=== PATIENT | male | born 1985 | race Caucasian/White ===

== ENCOUNTER 2018-02-28 04:38 | Emergency (ER) | payer SELFPAY ==
[2018-02-28 05:50] LABS: Absolute Lymphocytes (CBC) 0.8 K/uL (0.7-4.9); Absolute Neutrophil 7.2 K/uL (1.8-8.0); Basophils % 0.2 % (0-1.3); Eosinophils % 0.9 % (0-4.4); Hematocrit 46.4 % (39.6-49.0); Lymphocytes % 9.2 % (15.3-44.8); MCH 31.6 pg (27.0-35.0); MCV 92.1 fL (80-100); MPV 10.3 fL (7.6-11.3); Monocytes % 10.8 % (3.3-12.3); RBC Red Blood Cell Count 5.03 M/uL (4.33-5.43)
[2018-02-28 05:54] LABS: Protime INR 1.08
[2018-02-28 06:00] LABS: Potassium 4.1 mEq/L (3.6-5.0)
[2018-02-28 06:06] LABS: Albumin 4.2 g/dL (3.2-5.5); Bilirubin Direct 0.1 mg/dL (0-0.2); Bilirubin Total 0.3 mg/dL (0.3-1.2); Magnesium 1.9 mg/dL (1.8-2.5); Protein, Total 7.2 g/dL (6.0-8.3)
[2018-02-28 06:09] LABS: CKMB Creatine Kinase MB 0.8 ng/ml (0.3-4.0)
--- NOTE | 2018-02-28 06:39 | EDPHYS ---
Physician Documentation [facility] Name: Korey Burr Age: 32 yrs Sex: Male : 1985 Arrival Date: 02/28/2018 Time: 04:42 Bed 5 Private MD: ED Physician Mayur Neville HPI: 02/28 05:51 This 32 yrs old Male presents to ER via Ambulatory with complaints of Chest tw4 Pain. 05:51 The patient or guardian reports chest pain that is located primarily in the anterior tw4 chest wall. The pain does not radiate. Associated signs and symptoms: The patient has no apparent associated signs or symptoms. The chest pain is described as dull. Duration: The patient or guardian reports a single episode. Modifying factors: The symptoms are alleviated by nothing. the symptoms are aggravated by nothing. Severity of pain: At its worst the pain was moderate in the emergency department the pain is unchanged. The patient has not recently seen a physician. Historical: - Allergies: 05:03 No Known Allergies; aa1 - Home Meds: 05:03 None [Active]; aa1 - PMHx: 05:03 None; aa1 - PSHx: 05:03 None; aa1 - Immunization history:: Last tetanus immunization: unknown. - Social history:: Smoking status: Patient uses tobacco products, smokes one pack cigarettes per day. - Ebola Screening: : No symptoms or risks identified at this time. ROS: 05:51 Constitutional: Negative for fever, chills, and weight loss, Respiratory: Negative for tw4 shortness of breath, cough, wheezing, and pleuritic chest pain, Abdomen/GI: Negative for abdominal pain, nausea, vomiting, diarrhea, and constipation, Back: Negative for injury and pain. 05:51 MS/Extremity: Negative for injury and deformity, Skin: Negative for injury, rash, and discoloration, Neuro: Negative for headache, weakness, numbness, tingling, and seizure. 05:51 Cardiovascular: Positive for chest pain, Negative for edema, orthopnea, palpitations. Exam: 05:51 Constitutional: This is a well developed, well nourished patient who is awake, alert, tw4 and in no acute distress. Head/Face: Normocephalic, atraumatic. Chest/axilla: Normal chest wall appearance and motion. Nontender with no deformity. No lesions are appreciated. Cardiovascular: Regular rate and rhythm with a normal S1 and S2. No gallops, murmurs, or rubs. Normal PMI, no JVD. No pulse deficits. Respiratory: Lungs have equal breath sounds bilaterally, clear to auscultation and percussion. No rales, rhonchi or wheezes noted. No increased work of breathing, no retractions or nasal flaring. Abdomen/GI: Soft, non-tender, with normal bowel sounds. No distension or tympany. No guarding or rebound. No evidence of tenderness throughout. Back: No spinal tenderness. No costovertebral tenderness. Full range of motion. MS/ Extremity: Pulses equal, no cyanosis. Neurovascular intact. Full, normal range of motion. Neuro: Awake and alert, GCS 15, oriented to person, place, time, and situation. Cranial nerves II-XII grossly intact. Motor strength 5/5 in all extremities. Sensory grossly intact. Cerebellar exam normal. Normal gait. Vital Signs: 05:03 BP 121 / 84; Pulse 97; Resp 18; Temp 98.4; Pulse Ox 98% on R/A; Weight 74.84 kg; Height aa1 5 ft. 9 in. (175.26 cm); Pain 1/10; 06:29 BP 124 / 84; Pulse 88; Resp 16; Pulse Ox 100% on R/A; ao 05:03 Body Mass Index 24.37 (74.84 kg, 175.26 cm) aa1 MDM: 04:46 Patient medically screened. tw4 03/01 01:13 Data reviewed: vital signs, nurses notes. Data interpreted: cafeteria monitor: rhythm is tw4 normal sinus rhythm, Pulse oximetry: Interpretation: normal. Special discussion: Based on the patient's history, exam, and Dx evaluation, there is no indication for emergent intervention or inpatient Tx. It is understood by the patient/guardian that if the Sx's persist or worsen they need to return immediately for re-evaluation. I discussed with the patient/guardian in detail that at this point there is no indication for admission to the hospital. It is understood, however, that if the symptoms persist or worsen the patient needs to return immediately for re-evaluation. 02/28 04:46 Order name: Basic Metabolic Panel; Complete Time: 06:38 tw4 02/28 06:38 Interpretation: Within normal limits. tw4 02/28 04:46 Order name: BNP; Complete Time: 06:38 4 02/28 06:38 Interpretation: Within normal limits: BNP < 10. 02/28 04:46 Order name: CBC with Diff; Complete Time: 06:38 tw4 02/28 06:38 Interpretation: Normal except: PLT 149; LYM% 9.2; DOMINICK% 78.9. 02/28 04:46 Order name: Ckmb; Complete Time: 06:38 4 02/28 04:46 Order name: CPK; Complete Time: 06:38 tw4 02/28 06:38 Interpretation: Within normal limits: CPK 88. 02/28 04:46 Order name: LFT's; Complete Time: 06:38 4 02/28 04:46 Order name: Magnesium; Complete Time: 06:38 4 02/28 04:46 Order name: PT-INR; Complete Time: 06:38 4 02/28 06:38 Interpretation: Normal except: PT 12.7. 02/28 04:46 Order name: Ptt, Activated; Complete Time: 06:38 02/28 04:46 Order name: Troponin (emerg Dept Use Only); Complete Time: 06:38 4 02/28 04:46 Order name: XRAY Chest (1 view) tw02/28 04:46 Order name: EKG; Complete Time: 04:47 02/28 06:46 Order name: Urine Dipstick--Ancillary (enter results) ms 02/28 04:46 Order name: Cardiac monitoring; Complete Time: 05:28 02/28 04:46 Order name: EKG - Nurse/Tech; Complete Time: 05:41 02/28 04:46 Order name: IV Saline Lock; Complete Time: 05:41 02/28 04:46 Order name: Labs collected and sent; Complete Time: 05:41 02/28 04:46 Order name: O2 Per Protocol; Complete Time: 05:41 02/28 04:46 Order name: O2 Sat Monitoring; Complete Time: 05:41 tw4 EC/03 05:57 Rate is 90 beats/min. Rhythm is regular. QRS [place] is Normal. IN interval is normal. QRS tw4 interval is normal. QT interval is normal. No Q waves. T waves are Normal. No ST changes noted. Clinical impression: Normal ECG. Interpreted by me. Reviewed by me. Administered Medications: No medications were administered Disposition: 02/28/18 06:39 Discharged to Home. Impression: Chest pain, unspecified. - Condition is Stable. - Discharge Instructions: Electrocardiography, Pain Without a Known Cause, Nonspecific Chest Pain, [id number]. - Prescriptions for Naprosyn 500 mg Oral Tablet - take 1 tablet by ORAL route 2 times per day take with food; 30 tablet. - Medication Reconciliation Form, Thank You Letter, Antibiotic Education, Prescription Opioid Use form. - Follow up: Private Physician; When: As needed; Reason: Recheck today's complaints, Continuance of care, Re-evaluation by your physician. - Problem is new. - Symptoms have improved. Signatures: Dispatcher [employer] EDYolanda Huddleston RN RN aa1 Samuel Ashley RN RN ao Mayur Neville MD MD tw4 Corrections: (The following items were deleted from the chart) 07:11 04:46 Urine Dipstick-Ancillary ordered. tw4 ao 07:15 06:39 02/28/2018 06:39 Discharged to Home. Impression: Chest pain, unspecified. ao Condition is Stable. Forms are Medication Reconciliation Form, Thank You Letter, Antibiotic Education, Prescription Opioid Use. Follow up: Private Physician; When: As needed; Reason: Recheck today's complaints, Continuance of care, Re-evaluation by your physician. Problem is new. Symptoms have improved. tw4
--- NOTE | 2018-02-28 06:39 | ER ---
Nurse's Notes [facility] Name: Korey Burr Age: 32 yrs Sex: Male : 1985 Arrival Date: 02/28/2018 Time: 04:42 Bed 5 Private MD: Diagnosis: Chest pain, unspecified Presentation: 02/28 05:01 Presenting complaint: Patient states: int CP since last night. States, "It will go away aa1 and then I'll lay down and it will come back." Also reports cough and congestion. Transition of care: patient was not received from another setting of care. Onset of symptoms was February 27, 2018. Risk Assessment: Do you want to hurt yourself or someone else? Patient reports no desire to harm self or others. Initial Sepsis Screen: Does the patient meet any 2 criteria? No. Patient's initial sepsis screen is negative. Does the patient have a suspected source of infection? No. Patient's initial sepsis screen is negative. Care prior to arrival: None. 05:01 Method Of Arrival: Ambulatory aa1 05:01 Acuity: CRISTAL 3 aa1 Historical: - Allergies: 05:03 No Known Allergies; aa1 - Home Meds: 05:03 None [Active]; aa1 - PMHx: 05:03 None; aa1 - PSHx: 05:03 None; aa1 - Immunization history:: Last tetanus immunization: unknown. - Social history:: Smoking status: Patient uses tobacco products, smokes one pack cigarettes per day. - Ebola Screening: : No symptoms or risks identified at this time. Screenin:53 Abuse screen: Denies threats or abuse. Denies injuries from another. Nutritional rv screening: No deficits noted. Tuberculosis screening: No symptoms or risk factors identified. Fall Risk None identified. Assessment: 05:00 General: Appears in no apparent distress. comfortable, Behavior is calm, cooperative, rv appropriate for age. Pain: Complains of pain in chest Pain does not radiate. Pain currently is 4 out of 10 on a pain scale. Quality of pain is described as pressure, Pain began 2-3 days ago. Neuro: Level of Consciousness is awake, alert, obeys commands, Oriented to person, place, time, situation, Appropriate for age Moves all extremities. Full function Speech is normal, Cardiovascular: Capillary refill < 3 seconds Patient's skin is warm and dry. Respiratory: Airway is patent is compromised Respiratory effort is even, unlabored, Respiratory pattern is regular, symmetrical. GI: Abdomen is non-distended. : No signs and/or symptoms were reported regarding the genitourinary system. EENT: No signs and/or symptoms were reported regarding the EENT system. Derm: Skin is intact, Skin temperature is warm. Musculoskeletal: Circulation, motion, and sensation intact. Range of motion:. 06:29 Reassessment: Patient appears in no apparent distress at this time. Patient and/or ao family updated on plan of care and expected duration. Pain level reassessed. Patient is alert, oriented x 3, equal unlabored respirations, skin warm/dry/pink. Provide with water. Waiting for patient to give a urine sample. 07:11 Reassessment: Patient DC home. Patient understand the POC and to follow up with PCP. Dr clotilde Neville ordered to cancel UDS due to no urine given from patient. Vital Signs: 05:03 BP 121 / 84; Pulse 97; Resp 18; Temp 98.4; Pulse Ox 98% on R/A; Weight 74.84 kg; Height aa1 5 ft. 9 in. (175.26 cm); Pain 1/10; 06:29 BP 124 / 84; Pulse 88; Resp 16; Pulse Ox 100% on R/A; ao 05:03 Body Mass Index 24.37 (74.84 kg, 175.26 cm) aa1 ED Course: 04:42 Patient arrived in ED. es 04:46 Mayur Neville MD is Attending Physician. tw4 04:56 X-ray completed. Portable x-ray completed in exam room. Patient tolerated procedure mh1 well. 05:03 Triage completed. aa1 05:03 Arm band placed on right wrist. Patient placed in an exam room, on a stretcher. aa1 05:28 Samuel Ashley, CATHY is Primary Nurse. ao 05:40 Inserted saline lock: 18 gauge in right forearm, using aseptic technique. Blood rv collected. Patient maintains SpO2 saturation greater than 95% on room air. 05:43 XRAY Chest (1 view) In Process Unspecified. EDMS 05:57 Patient has correct armband on for positive identification. Pulse ox on. NIBP on. rv 07:11 No provider procedures requiring assistance completed. IV discontinued, intact, ao bleeding controlled, No redness/swelling at site. Pressure dressing applied. Administered Medications: No medications were administered Outcome: 06:39 Discharge ordered by . tw4 07:11 Discharged to home ambulatory. ao 07:11 Condition: stable 07:11 Discharge instructions given to patient, Instructed on discharge instructions, follow up and referral plans. Demonstrated understanding of instructions, follow-up care, medications, Prescriptions given X 1. 07:15 Patient left the ED. ao Signatures: Dispatcher [employer] Yolanda Rodríguez, RN RN 1 Rosalinda Ordonez Martha 1 Samuel Ashley RN RN Mayur Bell MD MD tw4 Rodrigo Rogel RN RN rv
[2018-02-28 07:25] LABS: Urine Blood NEGATIVE (NEG); Urine Glucose NEGATIVE (NEG); Urine Protein NEGATIVE (NEG); Urine Specific Gravity 1.015 (1.005-1.030)
--- NOTE | 2018-02-28 10:27 | RAD REPORT ---
EXAM DESCRIPTION: Thaddeus Single View02/28/2018 5:43 am CLINICAL HISTORY: Chest pain COMPARISON: none FINDINGS: The lungs appear clear of acute infiltrate. The heart is normal size IMPRESSION: No acute abnormalities displayed
--- NOTE | 2018-02-28 10:39 | EKG ---
Test Date: 2018-02-28 Test Time: 05:06:40 [employer] Worker: DONAVAN MEASUREMENT RESULTS: Intervals: Rate: 90 WI: 122 QRSD: 76 QT: 336 QTc: 411 Connell: P: 73 WI: 122 QRS: 78 T: 47 INTERPRETIVE STATEMENTS: Normal sinus rhythm Normal ECG No previous ECG available for comparison Electronically Signed On 02-28-18 10:38:34 CDT by Eren Carrero
== END 2018-02-28 07:15 | disposition home or self-care (01) ==
LOC: ER 04:38
DX: R07.9 Chest pain, unspecified (principal); F17.210 Nicotine dependence, cigarettes, uncomplicated
CPT/HCPCS: 36415; 71045; 80048; 80076; 81003; 82550; 82553; 83735; 83880; 84484; 85025; 85610; 85730; 93005; 99284